=== PATIENT | male | born 1995 | race Caucasian/White ===

== ENCOUNTER → 2020-08-24 | Day surgery (SDC) | payer OTHER ==
[~2020-08-24] MED LIST: Ketamine 200 MG/20 ML MDV ONE; Lactated Ringers 1,000 ML IV SCH; Midazolam 1 MG/ML 2 ML SDV ONE; Ondansetron 4 MG/2 ML SDV ONE; Propofol 200 MG/20 ML SDV ONE; fentaNYL 100 MCG/2 ML SDV ONE
--- NOTE | 2020-08-24 13:34 | OR ---
DATE OF OPERATION: 08/24/2020 PREOPERATIVE DIAGNOSIS: HEMATOCHEZIA. POSTOPERATIVE DIAGNOSIS: HEMATOCHEZIA. SURGEON: Ricardo Omer MD PROCEDURE: DIAGNOSTIC COLONOSCOPY WITH RANDOM BIOPSIES X5, SNARE POLYPECTOMY X1. ANESTHESIA: MAC. COMPLICATIONS: None. SPECIMEN: 1. Tubular adenoma in the sigmoid colon, approximately 6 to 7 mm. 2. Random colon biopsies from terminal ileum to sigmoid colon. FINDINGS: 1. Full-length diagnostic colonoscopy. 2. Tubular adenoma, sigmoid colon, approximately 6 mm. 3. No signs of any other active bleeding sites or colitis. RECOMMENDATIONS: Medical followup with Tima Uriarte pending path reports. Recommend a followup colonoscopy in 2 to 3 years pending path report. INDICATIONS: The patient has been having some on and off again hematochezia. [facility] Uriarte sent him for diagnostic colonoscopy. DESCRIPTION OF PROCEDURE: The patient was prepped and draped, placed in the left lateral decubitus position. A lubricated Olympus colonoscope was inserted and easily advanced to the cecum. It took a few different attempts in position change to get into the terminal ileum, but we were able to intubate into the terminal ileum which was grossly benign. We did do 2 random biopsies there. The cecal pouch itself appeared benign and random biopsies were done from the cecum to the sigmoid as well numbering a total of 5. From the terminal ileum all the way down to approximately 30 cm, the patient had no gross abnormalities. At 30 cm, he had a stalk tubular adenoma which measured about 6 mm. It was very friable, almost inflammatory, could certainly be the source of his bleeding, removed with a snare and suctioned into polyp trap #1 without complication. The rectosigmoid area and rectal vault appeared benign. Retroflexion of the scope in the rectum showed no perianal lesions. Air was then suctioned and the scope removed without complication. MEGAN/ISRA /[id number]
== END ==
LOC: CC.SDS 09:57
PROVIDERS: ATTEND Family Medicine
DX: D12.5 Benign neoplasm of sigmoid colon (principal); Z98.890 Other specified postprocedural states
CPT/HCPCS: 00811; J2250; J2405; J2704; J3010; J7120

== ENCOUNTER → 2022-09-12 | Day surgery (SDC) | payer MEDICAID ==
[~2022-09-12] MED LIST changes: -Ondansetron 4 MG/2 ML SDV ONE; -fentaNYL 100 MCG/2 ML SDV ONE; +fentaNYL 50 MCG/ML SDV ONE
== END ==
LOC: CC.SDS 08:56
PROVIDERS: ATTEND Family Medicine
DX: Z12.11 Encounter for screening for malignant neoplasm of colon (principal); E55.9 Vitamin D deficiency, unspecified; Z86.010 Personal history of colon polyps; Z79.899 Other long term (current) drug therapy
CPT/HCPCS: J7120